=== PATIENT | male | born 1995 | race Caucasian/White ===

== ENCOUNTER → 2019-11-07 16:17 | Outpatient (CLI) | payer BC, SELFPAY ==
[2019-11-07 17:04] LABS: Basophils # 0.1 K/mm3 (0-0.2); Basophils % 1.3 % (0.1-2.0); Eosinophils # 0.3 K/mm3 (0.0-0.4); Eosinophils % 4.4 % (0.1-12.0); Hematocrit 47.3 % (42.0-52.0); Hemoglobin 16.2 g/dL (14.1-18.0); Lymphocytes # 2.1 K/mm3 (0.7-4.5); Lymphocytes % 29.3 % (10-50); Mean Corpuscular HGB Conc 34.3 g/dL (31.8-35.4); Mean Corpuscular Volume 87.6 fl (80-94); Mean Platelet Volume 7.7 fl (7.4-10.4); Monocytes # 0.5 K/mm3 (0.1-1.0); Monocytes % 6.5 % (1.7-9.3); Neutrophils # 4.2 K/mm3 (1.8-7.8); Neutrophils % 58.6 % (37.0-80.0); Platelet Count 236 K/mm3 (142-424); Red Cell Distribution Width 13.2 % (11.5-17.5); White Blood Count 7.1 K/mm3 (4.8-10.8)
[2019-11-07 17:46] LABS: Hemoglobin A1C 5.4 % (4.0-6.0)
[2019-11-07 18:20] LABS: Chloride 101 mmol/L (98-107); Potassium 4.5 mmoL/L (3.5-5.1); Sodium 140 mmol/L (136-145)
[2019-11-07 18:22] LABS: Alanine Aminotransferase 75 U/L (12-78); Anion Gap 12.5 mEq/L (5-15); Aspartate Amino Transferase 38 U/L (17-59); Blood Urea Nitrogen 14 mg/dl (9-20); Carbon Dioxide 31 mmol/L (22.0-30.0); Estimated Glomerular Filt Rate 93 ml/min (>60); GFR (African American) 112 ML/MIN (>60)
[2019-11-07 18:23] LABS: Albumin Level 4.7 g/dl (3.5-5.0); Albumin/Globulin Ratio 1.6 (1.1-1.8); Alkaline Phosphatase 47 U/L (38-126); Bilirubin,Total 0.7 mg/dl (0.2-1.3); Calcium 9.5 mg/dl (8.4-10.2); Cholesterol 216 mg/dl (140-200); Globulin 2.9 g/dL (1.3-3.2); Glucose 80 mg/dl (74-100); HDL Cholesterol 31 mg/dl (40-60); Total Protein,Serum 7.6 g/dl (6.3-8.2); Triglycerides 281 mg/dl (30-150); VLDL Cholesterol 56 mg/dL (0-40)
[2019-11-07 18:34] LABS: Direct LDL Cholesterol 156.55 mg/dL (100-129)
[2019-11-07 18:54] LABS: Thyroid Stimulating Hormone 2.16 uIU/mL (0.465-4.68)
[2019-11-15 03:13] LABS: Testosterone, Total, LC/MS 388.8 ng/dL (264.0-916.0); Testosterone,Free 8.2 pg/mL (9.3-26.5)
== END ==
PROVIDERS: Visit Provider Internal Medicine Adolescent Medicine
DX: N52.9 Male erectile dysfunction, unspecified (principal)
CPT/HCPCS: 36415; 80053; 80061; 83036; 84402; 84403; 84443; 85025

== ENCOUNTER 2020-01-19 22:54 | Emergency (ER) | payer BC, SELFPAY ==
[2020-01-19 23:01] VITALS: BP 164/84; PULSE 89; RESP 18; TEMP 37.1; O2SAT 99; BMI 35.9
[2020-01-19 23:38] LABS: Strep Scrn Group A (Rapid) Negative (Negative)
--- NOTE | 2020-01-20 00:12 | HMH.EDGENADL ---
ED Disposition Clinical Impression: Pharyngitis Qualifiers: Pharyngitis/tonsillitis etiology: unspecified etiology Qualified Code(s): J02.9 - Acute pharyngitis, unspecified Disposition: Home, Self-Care Condition on Discharge: Good Instructions: Sore Throat Additional Instructions: use meds and see pcp for follow up Prescriptions: Minocycline HCl [Minocycline HCl 100mg Tab*] 100 mg PO BID #20 tab Transmission Status: Pending to [id number] Referrals: PCP,No [Primary Care Provider] - - Critical Care Critical Care Time: No Attestation: On 01/19/20, the high probability of a clinically significant, sudden or life threatening deterioration of the following system(s) required my full and direct attention, intervention and personal management. The time I documented below is in addition to time spent performing reported procedures but includes the following listed in this critical care notation. Medical Decision Making - Medical Records Medical records reviewed: Yes: I reviewed the patient's medical records. - Pradip Inquiry Pt receiving controlled substance: No Vital Signs: 01/19/20 23:01 Temperature 98.8 F Temperature Source Oral Pulse Rate [Left] 89 Respiratory Rate 18 Blood Pressure [Right Arm] 164/84 H Blood Pressure Mean [Right Arm] 110 Blood Pressure Source [Right Arm] Automatic Cuff Blood Pressure Position [Right Arm] Sitting 02 Sat by Pulse Oximetry 99 - Lab Data Lab results reviewed: Yes: I reviewed the patient's lab results. Lab Results 01/19/20 23:16: Group A Strep Rapid Negative Orders (Tests/Meds): ORDERS Category Date Time Status Strep Screen Confirmation Stat Micro 01/19/20 23:16 Received General Adult HPI - General Chief complaint: PAIN Stated complaint: throat Time Seen by Provider: 01/19/20 23:50 Mode of Arrival: Ambulatory Source of Information: Patient, Medical Record Limitations: No Limitations Description of Symptoms (Recalled from ER Triage Doc. by RN): pt states he feels like something is stuck in his throat. he woke up feeling this way. states I just hope its not chlamydia. pt had sex for the last night. - History of Present Illness HPI narrative: sore throat today - had oral sex with female last pm no known infection Onset (ago): day(s) Severity: moderate Associated symptoms: denies other symptoms - Related Data Previous Rx's Medication Instructions Recorded Cyclobenzaprine HCl 10 mg PO Q8 #10 tab 04/14/18 [Cyclobenzaprine 10mg Tab] Ibuprofen [Ibuprofen 600mg Tab] 800 mg PO Q8HP PRN #30 tab 04/14/18 Minocycline HCl [Minocycline HCl 100 mg PO BID #20 tab 01/20/20 100mg Tab*] Allergies Allergy/AdvReac Type Severity Reaction Status Date / Time NO KNOWN DRUG ALLERGIES Allergy Unknown Uncoded 04/14/18 21:51 [facility] History - Hepatitis A Screen Drug use history?: No High risk sexual behaviors?: No History of sexually transmitted infection?: No Currently employed?: No Childcare worker?: No Do you have indoor plumbing?: Yes Do you have electricity?: Yes Attestation statement:: This patient has been screened for Hepatitis A risk factors. I have reviewed the patient's past medical history: Yes Medical History: Denies:: Diabetes Mellitus Type 1, Diabetes Mellitus Type 2 Laterality Cases: Bilateral: Other Amputation: No Fractures: No - Social History Smoking Status: Current some day smoker Tobacco Type: smokeless tobacco, cigarettes #Yrs smoked (if former smoker): 1 Alcohol Intake: never Alcohol Intake Frequency:: a few times a month Substance Use Type: denies use Family Hx:: Diabetes, Stroke, Heart Attack ROS Obtained: Yes All systems reviewed & no additional complaints - Constitutional Constitutional: Denies fever(s) - Eyes Eyes: Denies change in vision - ENT Ears, Nose, Mouth, and Throat: Reports as per HPI, Reports sore throat - Cardiovascular Cardiovascular: Denies chest pain - Respirat
[2020-01-20 00:24] VITALS: BP 121/76; PULSE 84; RESP 18; TEMP 36.9
== END 2020-01-20 00:26 | disposition home or self-care (01) ==
PROVIDERS: Emergency Provider Emergency Medicine
DX: J02.9 Acute pharyngitis, unspecified (principal); F17.210 Nicotine dependence, cigarettes, uncomplicated
CPT/HCPCS: 87430; 99282

== ENCOUNTER 2020-09-23 11:27 | Emergency (ER) | payer BC, SELFPAY ==
[2020-09-23 11:33] VITALS: BP 133/73; PULSE 87; RESP 18; TEMP 36.6; O2SAT 98; BMI 35.9
--- NOTE | 2020-09-23 11:44 | HMH.EDUTC ---
[facility] [place] Disposition Clinical Impression: Strep throat Disposition: Home, Self-Care Condition on Discharge: Good Instructions: Strep Throat, DI for Strep Throat, Amoxicillin, Fluticasone Nasal [place] Additional Instructions: *Monitor Temp, Over the counter Motrin or Tylenol as directed/as needed Tylenol every 4 hours and Motrin every 6 hours (as long as your family doctor has told you that you can take it) for fever or pain. and straight to ER if unable to lower temp less than 101.0 after medication given *Warm salt water gargles may help to soothe the throat *Throat Lozenges *Warm fluids like tea with honey may help to soothe the throat *Sleep elevated *Humidifier/Vaporizer *Flonase 2 sprays in each nostril daily but be aware that it may take 2-3 days before you notice improvement *If you did not take Penicillin shot or was unable to, start taking antibiotic immediately and make sure that you take it for the FULL length of time although you should start to feel better in 24-48 hours *change toothbrush and toothpaste 24-48 hours after starting to take antibiotics so you do not reinfect yourself Monitor Temp. Tylenol and/or Ibuprofen as needed. ER if fever is no less than 101 despite alternating Tylenol and Ibuprofen * Encourage fluids, water, Gatorade, powerade, pedialyte if /toddler/or child *Cold fluids, popsicles and ice cream may feel good on his throat Follow up IMMEDIATELY for new or worsening symptoms or no Noticeable improvement over the next 48-72 hours. 911 for difficulty breathing or swallowing Prescriptions: Amoxicillin [Amoxicillin 500mg Cap] 500 mg PO BID 10 Days #20 cap Transmission Status: Received by [id number] Fluticasone Propionate [Flonase 50mcg nasal spray 16gm] 1 spr NS DAILY #1 bottle Transmission Status: Received by [id number] Referrals: Star Ernandez MD [Primary Care Provider] - As needed Forms: Work/School Release Time of Disposition: 12:01 Medical Decision Making - Pradip Inquiry Pt receiving controlled substance: No Pradip was queried for this patient: No Vital Signs: 09/23/20 11:33 09/23/20 12:05 Temperature 97.8 F 97.8 F Temperature Source Tympanic Tympanic Pulse Rate 87 Pulse Rate [Right Brachial] 87 Respiratory Rate 18 18 Blood Pressure 133/73 Blood Pressure [Right Arm] 133/73 Blood Pressure Mean [Right Arm] 93 Blood Pressure Source Automatic Cuff Blood Pressure Source [Right Arm] Automatic Cuff Blood Pressure Position Sitting Blood Pressure Position [Right Arm] Sitting 02 Sat by Pulse Oximetry 98 Oxygen Delivery Method Room Air Room Air - Lab Data Lab results reviewed: Yes: I reviewed the patient's lab results. Lab Results 09/23/20 11:42: Strep Scn Rapid Clinic Positive A [facility] [place] HPI - General Stated complaint: covid test Time Seen by Provider: 09/23/20 11:44 Mode of Arrival: Ambulatory Source of Information: Patient Limitations: No Limitations Description of Symptoms (Recalled from Triage Doc. by RN): Pt wants covid test. Pt reports cough, congestion, & nausea/vomiting. HEENT Symptoms (Recalled from RN notes): Yes Resp Symptoms (Recalled from RN notes): Yes Skin Symptoms (Recalled from RN notes): No MS Symptoms (Recalled from RN notes): No Functional Status (Recalled from RN notes): wnl - History of Present Illness Provider Complaint: Patient states that he has been having sore throat, sinus congestion, cough for several days States that he had some nausea and vomiting last night and today was still not feeling well so he came in to get tested - Related Data Previous Rx's Medication Instructions Recorded Amoxicillin [Amoxicillin 500mg 500 mg PO BID 10 Days #20 cap 09/23/20 Cap] Fluticasone Propionate [Flonase 1 spr NS DAILY #1 bottle 09/23/20 50mcg nasal spray 16gm] Allergies Allergy/AdvReac Type Severity Reaction Status Date / Time NO KNOWN DRUG ALLERGIES Allergy Unknown Uncoded 04/14/18 21:51
[2020-09-23 11:58] LABS: UTC Strep Screen (Rapid) Positive (Negative)
[2020-09-23 12:05] VITALS: BP 133/73; PULSE 87; RESP 18; TEMP 36.6; O2SAT 98
== END 2020-09-23 12:06 | disposition home or self-care (01) ==
PROVIDERS: Emergency Provider Nurse Practitioner; PCP Internal Medicine Adolescent Medicine
DX: Z20.822 Contact with and (suspected) exposure to COVID-19 (principal); J02.0 Streptococcal pharyngitis; F17.210 Nicotine dependence, cigarettes, uncomplicated
CPT/HCPCS: 87880; 99202; G0463; U0003

== ENCOUNTER 2021-01-11 20:42 | Emergency (ER) | payer BC, SELFPAY ==
[2021-01-11 22:00] VITALS: BP 126/69; PULSE 62; RESP 22; TEMP 37.1; O2SAT 99; BMI 33.9
--- NOTE | 2021-01-11 22:06 | HMH.EDUTC ---
[facility] [place] Clinical Impression: Exposure to COVID-19 virus Disposition: Home, Self-Care Condition on Discharge: Good Instructions: Preventing the Spread of Coronavirus Discharge Instructions Additional Instructions: Drink plenty of fluids. Take tylenol for pain or fever. Return if you begin to have difficulty breathing. Follow up with your regular doctor. GO TO THE ER FOR ANY WORSENING SYMPTOMS Referrals: Star Ernandez MD [Primary Care Provider] - Forms: Work/School Release Time of Disposition: 22:07 Medical Decision Making - Medical Records Medical records reviewed: No: I reviewed the patient's medical records. - Pradip Inquiry Pt receiving controlled substance: No Vital Signs: 01/11/21 22:00 01/11/21 22:11 Temperature 98.7 F 98 F Temperature Source Oral Pulse Rate 65 Pulse Rate [Left] 62 Respiratory Rate 22 16 Blood Pressure 000/00 L Blood Pressure [Right Arm] 126/69 Blood Pressure Mean [Right Arm] 88 02 Sat by Pulse Oximetry 99 [facility] [place] HPI - General Stated complaint: covid test Time Seen by Provider: 01/11/21 22:06 Mode of Arrival: Ambulatory Source of Information: Patient Limitations: No Limitations Description of Symptoms (Recalled from Triage Doc. by RN): pt called into work for covid symptoms and needs a release to return. pt states in truth he did not have any symptoms. HEENT Symptoms (Recalled from RN notes): No Resp Symptoms (Recalled from RN notes): No Skin Symptoms (Recalled from RN notes): No MS Symptoms (Recalled from RN notes): No Functional Status (Recalled from RN notes): na - History of Present Illness Provider Complaint: he states that he missed work and now he needs a negative covid test to be allowed to return. He denies any symptoms so far. But he has definitely been exposed multiple times over the past week. He has not been vaccinated. - Related Data Previous Rx's Medication Instructions Recorded Amoxicillin [Amoxicillin 500mg 500 mg PO BID 10 Days #20 cap 09/23/20 Cap] Fluticasone Propionate [Flonase 1 spr NS DAILY #1 bottle 09/23/20 50mcg nasal spray 16gm] Allergies Allergy/AdvReac Type Severity Reaction Status Date / Time NO KNOWN DRUG ALLERGIES Allergy Unknown Uncoded 04/14/18 21:51 - Worker's Comp Is this a Worker's Comp case?: No [facility] History - Hepatitis A Screen Drug use history?: No High risk sexual behaviors?: No History of sexually transmitted infection?: No Currently employed?: No Childcare worker?: No Do you have indoor plumbing?: Yes Do you have electricity?: Yes Attestation statement:: This patient has been screened for Hepatitis A risk factors. I have reviewed the patient's past medical history: Yes Medical History: Denies:: Diabetes Mellitus Type 1, Diabetes Mellitus Type 2 Laterality Cases: Bilateral: Other Amputation: No Fractures: No - Social History Smoking Status: Current some day smoker Tobacco Type: smokeless tobacco, cigarettes #Yrs smoked (if former smoker): 1 Alcohol Intake: never Alcohol Intake Frequency:: a few times a month Substance Use Type: denies use Family Hx:: Diabetes, Stroke, Heart Attack ROS Obtained: Yes All systems reviewed & no additional complaints - Constitutional Constitutional: Reports system reviewed and no additional complaints, except as docu - Eyes Eyes: Reports system reviewed and no additional complaints, except as docu - ENT Ears, Nose, Mouth, and Throat: Reports system reviewed and no additional complaints, except as docu - Cardiovascular Cardiovascular: Reports system reviewed and no additional complaints, except as docu - Respiratory Respiratory: Reports system reviewed and no additional complaints, except as docu - Gastrointestinal Gastrointestingal: Reports: system reviewed and no additional complaints, except as docu Physical Exam - General General appearance: alert, in no apparent distress - Head Head exam: atraumatic,
[2021-01-11 22:11] VITALS: BP 000/00; PULSE 65; RESP 16; TEMP 36.6
== END 2021-01-11 22:11 | disposition home or self-care (01) ==
PROVIDERS: Emergency Provider Nurse Practitioner Family; PCP Internal Medicine Adolescent Medicine
DX: Z20.822 Contact with and (suspected) exposure to COVID-19 (principal); F17.210 Nicotine dependence, cigarettes, uncomplicated
CPT/HCPCS: 99202; G0463; U0003

== ENCOUNTER 2021-04-27 08:08 | Emergency (ER) | payer BC, SELFPAY ==
[2021-04-27 08:09] VITALS: BP 118/73; PULSE 83; RESP 16; TEMP 36.4; O2SAT 98; BMI 30.1
--- NOTE | 2021-04-27 08:14 | XR_ITS ---
PROCEDURE: XR HAND LT MIN 3V CLINICAL INDICATION: injury left hand COMPARISON: CR HANDR3 HAND-RT 3 VIEWS from 02/01/2015 FINDINGS: No fracture or dislocation. No lytic or blastic change. There is normal mineralization. The joint spaces are well-preserved. No significant degenerative/arthritic changes. No erosive changes evident. Other findings:None. IMPRESSION: No acute findings. Dictated by: Patrick Wilkinson MD 04/27/2021 09:57 Patrick Wilkinson MD in [place] 04/27/2021 09:57
--- NOTE | 2021-04-27 08:35 | HMH.EDGENADL ---
ED Disposition Clinical Impression: Cellulitis Disposition: Home, Self-Care Condition on Discharge: Good Instructions: Cellulitis Additional Instructions: Please follow up with your primary care physician in 2-3 days for further management. Please use tylenol and ibuprofen for pain control and swelling. May also use ice to help with swelling. You have also been prescribed bactrim, please take as prescribed for prophylaxis. Please return for any concerning symptoms such as worsening pain, swelling, purulent drainage, extending into palm or any other concerning symptoms. Prescriptions: Sulfamethoxazole/Trimethoprim [Bactrim DS tablet] 1 each PO BID 7 Days #14 tab Transmission Status: Received by [id number] Referrals: Star Ernandez MD [Primary Care Provider] - Emil Monroy MD [Staff Physician] - Time of Disposition: 10:30 - Critical Care Critical Care Time: No Attestation: On 04/27/21, the high probability of a clinically significant, sudden or life threatening deterioration of the following system(s) required my full and direct attention, intervention and personal management. The time I documented below is in addition to time spent performing reported procedures but includes the following listed in this critical care notation. Medical Decision Making - Medical Records Medical records reviewed: Yes: I reviewed the patient's medical records. - Pradip Inquiry Pt receiving controlled substance: No Vital Signs: 04/27/21 08:09 04/27/21 11:13 Temperature 97.5 F L 98 F Temperature Source Oral Oral Pulse Rate 78 Pulse Rate [Radial] 83 Respiratory Rate 16 16 Blood Pressure 125/68 Blood Pressure [Right Arm] 118/73 Blood Pressure Mean [Right Arm] 88 Blood Pressure Position Sitting Blood Pressure Position [Right Arm] Sitting 02 Sat by Pulse Oximetry 98 Oxygen Delivery Method Room Air Room Air - Lab Data Lab Results 04/27/21 08:25: WBC 9.8, RBC 5.16, Hgb 15.4, Hct 44.7, MCV 86.6, MCH 29.9, MCHC 34.5, RDW 13.3, Plt Count 265, MPV 8.3, Neut % (Auto) 69.7, Lymph % (Auto) 23.6, Warrick % (Auto) 4.2, Eos % (Auto) 2.1, Baso % (Auto) 0.4, Neut # (Auto) 6.8, Lymph # (Auto) 2.3, Warrick # (Auto) 0.4, Eos # (Auto) 0.2, Baso # (Auto) 0.0, ESR 11 04/27/21 08:25: C-Reactive Protein 2.0 Result diagrams: 04/27/21 08:25 Orders (Tests/Meds): ED MEDICATIONS Discontinued Medications Generic Name Dose Route Start Last Admin Trade Name Jovanni PRN Reason Stop Dose Admin Tetanus/Reduced Diphtheria/Acell Pertussis 0.5 ml 04/27/21 08:25 04/27/21 08:34 Tet/Diphth/Pert-Adult 0.5ml Syringe IM 04/27/21 08:26 0.5 ml .ONCE ONE Administration Medical Decision Narrative: Mr. Acuña is a 25yo male w/ no significant PMH who presents to the ED w/ injury to the (L) 5th digit following a penetrating injury. Patient is afebrile and hemodynamically stable on arrival. Physical exam remarkable for: well appearing male, non toxic. Patient has significant swelling to the middle phalanx and proximal phalanx w/ swelling noted. No pain w/ passive motion. Full flexion and extension. No open lesions noted. Patient is given tylenol and ibuprofen PO for pain control. Differentials to consider include: low suspicion for flexor tensonyvitis given current exam, cellulitis, septic joint low suspicion given labs and current clinical picture and fractures/foreign body. Basic labs, CRP and ESR are obtained results are non actionable. XR of the hand shows no fracture, dislocations or foreign body noted. Patient is discharged w/ bactrim and keflex and informed to fu w/ hand clinic/Orthopaedics in 1 week for evaluation. Patient informed the importance of keeping his anointment and is discharged in stable condition. General Adult HPI - General Chief complaint: PAIN Stated complaint: swollen/sore left pinky finger Time Seen by Provider: 04/27/21 08:20 Mode of Arrival: Ambulatory Source of Information: Patient Limitations: No L
[2021-04-27 08:45] LABS: Basophils % 0.4 % (0.1-2.0); Eosinophils # 0.2 K/mm3 (0.0-0.4); Eosinophils % 2.1 % (0.1-12.0); Hematocrit 44.7 % (42.0-52.0); Hemoglobin 15.4 g/dL (14.1-18.0); Lymphocytes # 2.3 K/mm3 (0.7-4.5); Lymphocytes % 23.6 % (10-50); Mean Corpuscular HGB Conc 34.5 g/dL (31.8-35.4); Mean Corpuscular Hemoglobin 29.9 pg (27.0-31.2); Mean Corpuscular Volume 86.6 fl (80-94); Mean Platelet Volume 8.3 fl (7.4-10.4); Monocytes # 0.4 K/mm3 (0.1-1.0); Monocytes % 4.2 % (1.7-9.3); Neutrophils # 6.8 K/mm3 (1.8-7.8); Neutrophils % 69.7 % (37.0-80.0); Platelet Count 265 K/mm3 (142-424); Red Blood Count 5.16 M/mm3 (4.60-6.20); Red Cell Distribution Width 13.3 % (11.5-17.5); White Blood Count 9.8 K/mm3 (4.8-10.8)
[2021-04-27 09:32] LABS: Erythrocyte Sedimentation Rate 11 mm/hr (0-15)
--- NOTE | 2021-04-27 09:43 | PC.NURSE ---
contacted rad to request radiologist to read their films
[2021-04-27 11:13] VITALS: BP 125/68; PULSE 78; RESP 16; TEMP 36.6; O2SAT 98
== END 2021-04-27 11:15 | disposition home or self-care (01) ==
PROVIDERS: Emergency Provider Student in an Organized Health Care Education/Training Program; PCP Internal Medicine Adolescent Medicine
DX: L03.012 Cellulitis of left finger (principal); F17.210 Nicotine dependence, cigarettes, uncomplicated; Z23 Encounter for immunization
CPT/HCPCS: 73130; 85025; 85651; 86140; 90471; 90715; 99282

== ENCOUNTER 2022-09-09 16:04 | Emergency (ER) | payer BC, SELFPAY ==
[2022-09-09 16:35] VITALS: BP 145/81; PULSE 66; RESP 21; TEMP 36.7; O2SAT 98; BMI 38.8
--- NOTE | 2022-09-09 17:23 | EXP.UTC ---
Discharge Plan Disposition Patient Disposition: Home, Self-Care Condition: Good Prescriptions Prescriptions: New triamcinolone acetonide 0.1 % cream 1 applic topical TID Qty: 30 0RF Referrals Follow up/Referrals: Provider,Referral, MD [Primary Care Provider] - See instructions Clinical Impressions Clinical Impression: Contact dermatitis Instructions Patient Instructions: DI for Contact Dermatitis Discharge ED Provider: Janet Wilkins [facility] [place] H[place] General Stated complaint: face swollen Mode of Arrival: Ambulatory Source of Information: Patient Limitations: No Limitations Time Seen by Provider: 09/09/22 17:23 Description of Symptoms (Recalled from Triage Doc. by RN): PATIENT C/O SWELLING, REDNESS, AND ITCHING TO LEFT SIDE OF FACE AROUND EYE, NOSE AND FOREHEAD SINCE THIS MORNING HEENT Symptoms (Recalled from RN notes): Yes Resp Symptoms (Recalled from RN notes): No Skin Symptoms (Recalled from RN notes): Yes MS Symptoms (Recalled from RN notes): No Functional Status (Recalled from RN notes): WNL History of Present Illness Provider Complaint: Pt states that he had a spot under his left eye prior to going to sleep this morning. He reports that when he woke up the left side of his face under his eye and around his eye, his nose, and forehead were red and swollen. He states that the site itches. Related Data Previous Rx's Medication Instructions Recorded triamcinolone acetonide 0.1 % 1 applic topical TID #30 grams 09/09/22 topical cream Allergies Allergy/AdvReac Type Severity Reaction Status Date / Time No Known Allergies Allergy Verified 09/09/22 17:31 Worker's Comp Is this a Worker's Comp case?: No [facility] Disclaimer: The information contained in this section may have been updated after the patient was seen, as this information can be updated by other users. Social History Smoking Status: Current some day smoker tobacco type: cigarettes and smokeless tobacco second hand exposure: No alcohol intake: never substance use type: denies use current occupational status: employed Travel in the last 8 weeks: None ROS Obtained: Yes All systems reviewed & no additional complaints except as documented Constitutional Constitutional: Reports system reviewed and no additional complaints, except as documented Eyes Eyes: Reports as per HPI and Reports itchy eyes ENT Ears, Nose, Mouth, and Throat: Reports system reviewed and no additional complaints, except as documented Cardiovascular Cardiovascular: Reports system reviewed and no additional complaints, except as documented Respiratory Respiratory: Reports system reviewed and no additional complaints, except as documented Gastrointestinal Gastrointestingal: Reports system reviewed and no additional complaints, except as documented Genitourinary Male Genitourinary: Reports system reviewed and no additional complaints, except as documented Musculoskeletal Musculoskeletal: Reports system reviewed and no additional complaints, except as documented Integumentary/Breasts Skin/Breast: Reports as per HPI, Reports redness, Reports pruritus and Reports skin swelling Neurologic Neurologic: Reports system reviewed and no additional complaints, except as documented Endocrine Endocrine: Reports system reviewed and no additional complaints, except as documented Hematologic/Lymphatic Henatologic/Lymphatic: Reports system reviewed and no additional complaints, except as documented Allergic/Immunologic Allergic/Immunologic: Reports system reviewed and no additional complaints, except as documented and Reports itchy eyes Physical Exam General General appearance: alert and in no apparent distress Head Head exam: atraumatic and normocephalic Eye Eye exam: Present periorbital swelling (left eye) and periorbital tenderness (left eye) Neck Neck exam: Present normal inspection Chest Chest inspection: Present normal inspection and symmetric chest wall ris
[2022-09-09 17:36] VITALS: BP 145/81; PULSE 66; RESP 21; TEMP 36.7; O2SAT 98
== END 2022-09-09 17:39 | disposition home or self-care (01) ==
PROVIDERS: Emergency Provider Nurse Practitioner Family
DX: L25.9 Unspecified contact dermatitis, unspecified cause (principal); F17.210 Nicotine dependence, cigarettes, uncomplicated
CPT/HCPCS: 96372; 99212; 99214; G0463

== ENCOUNTER 2023-11-27 07:45 | Emergency (ER) | payer BC, SELFPAY ==
[2023-11-27 07:46] VITALS: BP 150/98; PULSE 84; RESP 16; TEMP 37.3; O2SAT 98; BMI 39.9
--- NOTE | 2023-11-27 08:01 | HMH.EDGENADL ---
Discharge Plan Disposition Patient Disposition: Home, Self-Care Prescriptions Prescriptions: New valacyclovir 1 gram tablet 1,000 mg PO Q8H 10 Days Qty: 30 1RF No Action triamcinolone acetonide 0.1 % cream 1 applic topical TID Qty: 30 0RF Referrals Follow up/Referrals: Star Ernandez MD [Primary Care Provider] - See instructions Activity Restrictions/Add. Instructions Additional Instructions/Restrictions: Valacyclovir 3 times daily for 10 days. A refill has been sent to the pharmacy as well. Talk to family doctor about having standing prescription for cold sores sent to the pharmacy so you are able to call them in whenever you start having symptoms. Medicine is most effective if taken within 72 hours of symptoms starting, but maximally effective closer to the onset of symptoms. Call your family doctor to establish care for this visit to the emergency department and schedule follow-up within 48 hours to ensure improvement. If you have any worsening of your condition or any other concerning signs or symptoms, return to the emergency department or your primary care doctor for further evaluation. Clinical Impressions Clinical Impression: Cold sore Instructions Patient Instructions: DI for Cold Sores Discharge ED Provider: Som Zavala General Adult HPI General Chief complaint: Skin/Abscess/Foreign Body Stated complaint: cold sore in nose area red painful Time Seen by Provider: 11/27/23 07:52 History of Present Illness HPI narrative: Please note that above description of symptoms, in this electronic medical record under categorization of recalled from ER triage doctor by RN are reflective of an initial nursing assessment, however, is not reflective of my full history and physical exam that was personally taken and clarified. Consequentially, this preceding description of symptoms, which may include the patient's categorized chief complaint in the EMR, do not reflect my personal clinical impression, and the ultimate description of history of present illness and patient stated complaints should be deferred to this section of the note. Unless stated otherwise or congruent with this section of the note, additional signs, symptoms, or incongruence should be interpreted as inaccurate with my clinical impression. Related Data Previous Rx's Medication Instructions Recorded triamcinolone acetonide 0.1 % 1 applic topical TID #30 grams 09/09/22 topical cream valacyclovir 1 gram tablet 1,000 mg PO Q8H 10 days #30 tabs 11/27/23 Allergies Allergy/AdvReac Type Severity Reaction Status Date / Time No Known Allergies Allergy Verified 09/09/22 17:31 [facility] Disclaimer: The information contained in this section may have been updated after the patient was seen, as this information can be updated by other users. Social History (Updated 09/09/22 @ 17:40 by Janet Wilkins APRN) Smoking Status: Never smoker second hand exposure: No alcohol intake: never substance use type: denies use current occupational status: employed Travel in the last 8 weeks: None ROS Obtained: Yes All systems reviewed & no additional complaints except as documented Physical Exam General General appearance: alert and in no apparent distress Head Head exam: atraumatic and normocephalic Eye Eye exam: Present normal appearance, PERRL and EOMI ENT ENT exam: Present mucous membranes moist Neck Neck exam: Present normal inspection, full ROM and trachea midline Respiratory Respiratory exam: Absent respiratory distress, wheezes, stridor, accessory muscle use or prolonged expiratory phase Cardiovascular Cardiovascular exam: Present normal rhythm Abdominal Exam Abdominal exam: Present soft; Absent distention, tenderness, guarding, rebound or rigidity Extremities Exam Extremities exam: Absent edema Neurological Exam Neurological exam: Present alert, oriented X3, CN II-XII intact and normal gait; Absent motor sensory deficit Skin Skin exam: Present warm and dry; Absent diaphoresis or erythema Medical Decision Making Medical Records Medical records reviewed: Yes I reviewed the patient's medical records. Pradip Inquiry Pt receiving controlled substance: No Pradip was queried for this patient: No Vital Signs: 11/27/23 07:46 11/27/23 08:10 Temperature 99.1 F 99.1 F Temperature Source Oral Oral Pulse Rate 70 Pulse Rate [Right] 84 Respiratory Rate 16 17 Blood Pressure 141/94 H Blood Pressure [Right Arm] 150/98 H Blood Pressure Mean [Right Arm] 115 Blood Pressure Source [Right Arm] Automatic Cuff 02 Sat by Pulse Oximetry 98 Oxygen Delivery Method Room Air Room Air Medical Decision Narrative: 28-year-old male history of labial herpes virus presenting with labial herpes flares. Patient states that this started 2 days ago. Started on his vermilion border on the left side, climbing up to his nose. He states this is what happens every time he gets a outbreak. Does not have any antivirals at the pharmacy. Pain is moderate in intensity, burning, does not radiate. No other associated symptoms. On arrival, patient hemodynamically stable. Appears very well. He does have vesicular lesions on erythematous bed extending from vermilion border up to left nostril. I feel this is consistent with orolabial herpes. Differential also includes developing abscess, cellulitis, among others. No fluctuance. Clinically HSV, so deemed appropriate for outpatient management. Valacyclovir 1000 mg 3 times daily was sent to his pharmacy of choice. It was recommended that he follow-up with his family doctor for standing prescription, but 1 refill was also sent here from the emergency department to prevent patient from needing to come to the emergency department, urgent care, or schedule urgent follow-up with his family doctor in the event of another outbreak. He voices understanding. Because patient at baseline without signs or symptoms of clinical decompensation, deemed appropriate for discharge. Results were relayed to patient who voiced understanding and were agreeable to outpatient management and follow up. I discussed my clinical impression with patient and answered all questions. At this time, the evidence for any other entities in the differential is insufficient to warrant any further testing or ED observation. This was explained as well. Advisory was given that persistent or worsening symptoms require further evaluation. I confirmed the understanding of this discussion. Fund Accountant disclaimer Much of this encounter note is an electronic director of education spoken language to printed text. Electronic director of education of the spoken language may permit errors. Although I have reviewed the note, some errors may still exist. Critical Care Critical Care Time Critical Care Time: No
[2023-11-27 08:10] VITALS: BP 141/94; PULSE 70; RESP 17; TEMP 37.3; O2SAT 97
== END 2023-11-27 08:12 | disposition home or self-care (01) ==
PROVIDERS: Emergency Provider Emergency Medicine; PCP Internal Medicine Adolescent Medicine
DX: B00.1 Herpesviral vesicular dermatitis (principal)
CPT/HCPCS: 99283

== ENCOUNTER 2024-01-15 16:41 | Emergency (ER) | payer BC, SELFPAY ==
[2024-01-15 16:55] VITALS: BP 137/95; PULSE 76; RESP 18; TEMP 36.7; O2SAT 95; BMI 41.2
--- NOTE | 2024-01-15 17:08 | XR_ITS ---
PROCEDURE INFORMATION: Exam: XR Lumbosacral Spine Exam date and time: 01/15/2024 5:08 PM Age: 28 years old Clinical indication: Low back pain; Additional info: Pain with movement TECHNIQUE: Imaging protocol: Radiologic exam of the lumbosacral spine. Views: 2 or 3 views. COMPARISON: CR [id number] XR lumbar spine min 4V 04/14/2018 10:29 PM FINDINGS: Bones/joints: Lumbar vertebrae normal in height. No acute fracture. Normal alignment. Mild L5-S1 intervertebral disc space narrowing. Soft tissues: Unremarkable. IMPRESSION: No acute osseous findings.
[2024-01-15 17:10] LABS: Apearance,Urine Clear (Clear); Bilirubin,Urine Negative (Negative); Blood, Urine Trace (Negative); Color,Urine Dark Yellow (Yellow); Glucose,Urine (UA) Negative (Negative); Ketones,Urine Negative (Negative); PH,Urine 5.5 (5.0-8.5); Protein,Urine Negative (Negative); Specific Gravity, Urine >= 1.030 (1.005-1.030); UTC Leukocyte Esterase,Urine Negative (Negative); UTC Nitrate,Urine Negative (Negative); Urobilinogen,Urine 0.2 EU/dl (0.2)
--- NOTE | 2024-01-15 17:11 | EXP.UTC ---
Discharge Plan Disposition Patient Disposition: Home, Self-Care Condition: Good Prescriptions Prescriptions: New etodolac 200 mg capsule 200 mg PO Q8H PRN (Reason: pain) Qty: 20 0RF methocarbamol 500 mg tablet 500 mg PO TID PRN (Reason: muscle spasm) Qty: 12 0RF methylprednisolone [Medrol (Julio Cesar)] 4 mg tablets,dose pack See Rx Instructions .Route .COMPLEX 6 Days Qty: 21 0RF Rx Instructions: taper pack; Referrals Follow up/Referrals: Star Ernandez MD [Primary Care Provider] - See instructions Activity Restrictions/Add. Instructions Additional Instructions/Restrictions: *Etodolac lashae 8 hours with meal as needed for pain/inflammation *Remember you had a Toradol shot in the clinic today, which is similar to Etodolac so if you need something else for pain tonight Tylenol *Not additional anti-inflammatory like Ibuprofen, motrin, aleve, advil with the above amount of Etodolac. You can still take Tylenol every 4 hours as needed if you need something else for pain *Ice 20 minutes every 2 hours for the first 48 hours after the initial injury followed by moist heat every 20 minutes 3-4 times a day to affected area *Muscle relaxer every 8 hours as needed for muscle spasms but remember, it WILL cause drowsiness You cannot take it and Work, drive, operate machinery or care for small children. *Keep this area active, no movement leads to more stiffness, However take it easy and avoid heavy lifting pushing or pulling *Follow up with you family doctor if no improvement for further treatment Clinical Impressions Clinical Impression: Low back pain Qualifiers: Chronicity: unspecified Back pain laterality: right Sciatica presence: unspecified whether sciatica present Qualified Code(s): M54.50 - Low back pain, unspecified Instructions Patient Instructions: Low Back Pain, DI for Low Back Pain Print Language Print Language: Norwegian Discharge ED Provider: Linh Fisher [facility] General Stated complaint: back pain Mode of Arrival: Ambulatory Source of Information: Patient Limitations: No Limitations Time Seen by Provider: 01/15/24 17:11 Description of Symptoms (Recalled from Triage Doc. by RN): PATIENT C/O SHARP PAIN TO LOWER BACK THAT OCCASIONALLY RADIATES INTO BUTTOCKS X 5 DAYS, NO KNOWN INJURY HEENT Symptoms (Recalled from RN notes): No Resp Symptoms (Recalled from RN notes): No Skin Symptoms (Recalled from RN notes): No MS Symptoms (Recalled from RN notes): Yes Functional Status (Recalled from RN notes): WNL History of Present Illness Provider Complaint: Patient states that he woke up on Mon with pain in the right side of his lower back Denies known injury States that at times when he bends or moves certain ways it shoots a sharp pain in his right lower back and into his buttock area States doesnt recall hurting it but 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 States he has taken Naproxen and some left over muscle relaxers but it hasnt helped much so today he came in to get checked when it was still bothering him Related Data Previous Rx's ?Medication ?Instructions ?Recorded etodolac 200 mg capsule 200 mg PO Q8H PRN pain #20 caps 01/15/24 methocarbamol 500 mg tablet 500 mg PO TID PRN muscle spasm #12 01/15/24 tabs methylprednisolone 4 mg tablets in See Rx Instructions .Route 01/15/24 a dose pack (Medrol (Julio Cesar)) .COMPLEX 6 days #21 tabs Allergies Allergy/AdvReac Type Severity Reaction Status Date / Time No Known Allergies Allergy Verified 09/09/22 17:31 Worker's Comp Is this a Worker's Comp case?: No [facility] Disclaimer: The information contained in this section may have been updated after the patient was seen, as this information can be updated by other users. Social History (Updated 09/09/22 @ 17:40 by Janet Wilkins APRN) Smoking Status: Never smoker second hand exposure: No alcohol intake: never substance use type: denies use current occupational status: employed Travel in the last 8 weeks: None ROS Obtained: Yes All systems reviewed & no additional complaints except as documented and Yes Systems reviewed as appropriate & no additional complaints except as documented Constitutional Constitutional: Reports system reviewed and no additional complaints, except as documented and Reports as per HPI ENT Ears, Nose, Mouth, and Throat: Reports system reviewed and no additional complaints, except as documented Cardiovascular Cardiovascular: Reports system reviewed and no additional complaints, except as documented and Reports as per HPI Respiratory Respiratory: Reports system reviewed and no additional complaints, except as documented and Reports as per HPI Gastrointestinal Gastrointestingal: Reports system reviewed and no additional complaints, except as documented and as per HPI Musculoskeletal Musculoskeletal: Reports system reviewed and no additional complaints, except as documented, Reports as per HPI and Reports back pain Physical Exam General General appearance: alert and in no apparent distress ENT ENT exam: Present mucous membranes moist Respiratory Respiratory exam: Present normal lung sounds bilaterally; Absent respiratory distress or wheezes Cardiovascular Cardiovascular exam: Present regular rate, normal rhythm and normal heart sounds Abdominal Exam Abdominal exam: Present soft and normal bowel sounds; Absent distention or tenderness Back Exam Back exam: Present tenderness Back 1 view image: 1. reports achy like pain that is sharp at times with certain movements and at times will radiate into buttock area worse with movement Neurological Exam Neurological exam: Present alert, oriented X3 and normal gait Medical Decision Making Pradip Inquiry Pt receiving controlled substance: No Pradip was queried for this patient: No Vital Signs: 01/15/24 16:55 Pulse Rate [Left Brachial] 76 Respiratory Rate 18 Blood Pressure [Left Arm] 137/95 H Blood Pressure Mean [Left Arm] 109 Blood Pressure Source [Left Arm] Automatic Cuff Blood Pressure Position [Left Arm] Sitting 02 Sat by Pulse Oximetry 95 Oxygen Delivery Method Room Air Lab Data Lab results reviewed: Yes I reviewed the patient's lab results. Lab Results 01/15/24 17:06: Urine Color Dark yellow, Urine Appearance Clear, Urine pH 5.5, Ur Specific [place] >= 1.030, Urine Protein Negative, Urine Glucose (UA) Negative, Urine Ketones Negative, Urine Blood Trace, Urine Nitrate Negative, Urine Bilirubin Negative, Urine Urobilinogen 0.2, Ur Leukocyte Esterase Negative Orders (Tests/Meds): ORDERS Category Date Time Status Lumbar spine XR 2-3 views [XR lumbar spine 2-3V] Stat Exams 01/15/24 17:08 Ordered Radiology Data #1: Image(s): L-Spine Image Reviewed: Yes I have reviewed radiologist's interpretation FINDINGS: Bones/joints: Lumbar vertebrae normal in height. No acute fracture. Normal alignment. Mild L5-S1 intervertebral disc space narrowing. Soft tissues: Unremarkable. IMPRESSION: No acute osseous findings.
[2024-01-15] MEDS: METHYLPREDNISOLONE SOD SUCC 125MG VIAL 125 MG IM (18:30)
[2024-01-15] MEDS: KETOROLAC 60MG/2ML VIAL 60 MG IM (18:30)
[2024-01-15 18:37] VITALS: BP 137/95; PULSE 76; RESP 18; TEMP 36.7; O2SAT 95
== END 2024-01-15 18:40 | disposition home or self-care (01) ==
PROVIDERS: Emergency Provider Nurse Practitioner; PCP Internal Medicine Adolescent Medicine
DX: M54.50 Low back pain, unspecified (principal); X50.0XXA Overexertion from strenuous movement or load, initial encounter
CPT/HCPCS: 72100; 81003; 96372; 99212; 99214; G0463; J1885; J2919

== ENCOUNTER 2024-06-10 19:52 | Emergency (ER) | payer BC, SELFPAY ==
--- NOTE | 2024-06-10 20:04 | ECG_ITS ---
APPROVED REPORT Exam: Resting ECG HR:102 bpm ECG Measurements Heart Rate 102 AXES MN 155 P 48 QRSd 94 QRS -5 QT 337 T 42 QTc 396 Conclusion Sinus tachycardia T wave inversions V2 and V3 with no reciprocal change Electronically signed by : CHAR FREGOSO, 06/10/2024 20:47:21
[2024-06-10 20:11] VITALS: BP 165/110; PULSE 104; RESP 21; TEMP 36.5; O2SAT 100; BMI 41.3
[2024-06-10 20:15] VITALS: BP 151/100; PULSE 93; RESP 23; O2SAT 95
--- NOTE | 2024-06-10 20:22 | XR_ITS ---
PROCEDURE INFORMATION: Exam: XR Chest Exam date and time: 06/10/2024 8:25 PM Age: 28 years old Clinical indication: Dyspnea; Additional info: SOA HTN TECHNIQUE: Imaging protocol: Radiologic exam of the chest. Views: 1 view. COMPARISON: No relevant prior studies available. FINDINGS: Lungs: Unremarkable. No consolidation. Pleural spaces: Unremarkable. No pleural effusion. No pneumothorax. Heart/Mediastinum: Unremarkable. No cardiomegaly. Bones/joints: Unremarkable. IMPRESSION: No acute findings.
--- NOTE | 2024-06-10 20:23 | HMH.EDGENADL ---
Discharge Plan Disposition Patient Disposition: Home, Self-Care Prescriptions Prescriptions: New irbesartan 150 mg tablet 150 mg PO DAILY Qty: 30 2RF No Action etodolac 200 mg capsule 200 mg PO Q8H PRN (Reason: pain) Qty: 20 0RF methocarbamol 500 mg tablet 500 mg PO TID PRN (Reason: muscle spasm) Qty: 12 0RF methylprednisolone [Medrol (Julio Cesar)] 4 mg tablets,dose pack See Rx Instructions .Route .COMPLEX 6 Days Qty: 21 0RF Rx Instructions: taper pack; Referrals Follow up/Referrals: Star Ernandez MD [Primary Care Provider] - See instructions Activity Restrictions/Add. Instructions Additional Instructions/Restrictions: Call your family doctor to establish care for this visit to the emergency department and schedule follow-up within 48 hours to ensure improvement. If you have any worsening of your condition or any other concerning signs or symptoms, return to the emergency department or your primary care doctor for further evaluation. Irbesartan once daily until following up with Dr. Akhtar for further management. Clinical Impressions Clinical Impression: Hypertension, Shortness of breath Print Language Print Language: Romanian Discharge ED Provider: Som Zavala General Adult HPI General Chief complaint: Arrhythmia/Palpitations Stated complaint: HBP 173/114,SOA Time Seen by Provider: 06/10/24 19:54 Mode of Arrival: Ambulatory Source of Information: Patient Limitations: No Limitations Description of Symptoms (Recalled from ER Triage Doc. by RN): pt states he has had elevated BP over the last wk. pt does not have a hx of HTN. pt states he is also feeling SOA and having heart palpitations. pt denies chest pain. no daily meds/medical hx. History of Present Illness HPI narrative: Please note that above description of symptoms, in this electronic medical record under categorization of recalled from ER triage doctor by RN are reflective of an initial nursing assessment, however, is not reflective of my full history and physical exam that was personally taken and clarified. Consequentially, this preceding description of symptoms, which may include the patient's categorized chief complaint in the EMR, do not reflect my personal clinical impression, and the ultimate description of history of present illness and patient stated complaints should be deferred to this section of the note. Unless stated otherwise or congruent with this section of the note, additional signs, symptoms, or incongruence should be interpreted as inaccurate with my clinical impression. Related Data Previous Rx's ?Medication ?Instructions ?Recorded etodolac 200 mg capsule 200 mg PO Q8H PRN pain #20 caps 01/15/24 methocarbamol 500 mg tablet 500 mg PO TID PRN muscle spasm #12 01/15/24 tabs methylprednisolone 4 mg tablets in See Rx Instructions .Route 01/15/24 a dose pack (Medrol (Julio Cesar)) .COMPLEX 6 days #21 tabs irbesartan 150 mg tablet 150 mg PO DAILY #30 tabs 06/10/24 Allergies Allergy/AdvReac Type Severity Reaction Status Date / Time No Known Allergies Allergy Verified 06/10/24 20:15 [facility] Disclaimer: The information contained in this section may have been updated after the patient was seen, as this information can be updated by other users. Social History (Updated 09/09/22 @ 17:40 by Janet Wilkins APRN) Smoking Status: Never smoker second hand exposure: No alcohol intake: never substance use type: denies use current occupational status: employed Travel in the last 8 weeks: None Have you lived/traveled outside US in past 30 days?: No Contact w/someone who lives/traveled outside US past 30 days?: No Exposure to someone with infectious disease in past 14 days?: No Do you have a fever (greater than 100.4 F or 38 C)?: No Have you tested positive for COVID-19: No Exposed to someone with COVID-19 in past 14 days?: No Do you have a sore throat?: No Do you have a cough?: No Do you have any weakness?: No Do you have any diarrhea?: No Are you experiencing any unusual bleeding?: No Do you have any muscle aches/pain?: No Do you have any abdominal pain?: No Are you experiencing loss of taste or smell?: No Other Medical History Have you received the Flu Vaccine for this season: No Have you received the Pneumonia Vaccine: No ROS Obtained: Yes All systems reviewed & no additional complaints except as documented Physical Exam General General appearance: alert Head Head exam: atraumatic and normocephalic Eye Eye exam: Present normal appearance, PERRL and EOMI Neck Neck exam: Present normal inspection, full ROM and trachea midline Respiratory Respiratory exam: Absent respiratory distress, wheezes, stridor, accessory muscle use or prolonged expiratory phase Cardiovascular Cardiovascular exam: Present other (Pulses equal symmetric in upper and lower extremities) Abdominal Exam Abdominal exam: Present soft; Absent distention, tenderness or pulsatile mass Extremities Exam Extremities exam: Absent edema Neurological Exam Neurological exam: Present alert, oriented X3 and CN II-XII intact; Absent motor sensory deficit Skin Skin exam: Present warm and dry; Absent diaphoresis or erythema Medical Decision Making Medical Records Medical records reviewed: Yes I reviewed the patient's medical records. Screening: Per USPSTF and CDC recommendations, given the prevalence of disease in our region, it is our hospital?s policy to screen for HIV and viral Hepatitis for all patients aged 18 and over and those with ongoing risk factors. Pradip Inquiry Pt receiving controlled substance: No Pradip was queried for this patient: No Vital Signs: 06/10/24 20:11 Temperature 97.7 F Temperature Source Oral Pulse Rate [Left] 104 H Respiratory Rate 21 Blood Pressure [Right Arm] 165/110 H Blood Pressure Mean [Right Arm] 128 Blood Pressure Source [Right Arm] Automatic Cuff Blood Pressure Position [Right Arm] Sitting 02 Sat by Pulse Oximetry 100 Oxygen Delivery Method Room Air Lab Data Lab Results 06/10/24 20:15: WBC 8.6, RBC 5.34, Hgb 15.4, Hct 44.7, MCV 83.7, MCH 28.8, MCHC 34.5, RDW 12.5, Plt Count 226, MPV 9.6, Neut % (Auto) 54.3, Lymph % (Auto) 35.1, [place] % (Auto) 7.7, Eos % (Auto) 2.4, Baso % (Auto) 0.3, Neut # (Auto) 4.7, Lymph # (Auto) 3.0, [place] # (Auto) 0.7, Eos # (Auto) 0.2, Baso # (Auto) 0.0, Sodium 140, Potassium 3.9, Chloride 101, Carbon Dioxide 29, Anion Gap 13.9, BUN 11, Creatinine 0.90, Estimated Creat Clear 123, Estimated GFR 101, Est GFR ( Amer) 122, Glucose 106 H, Calcium 9.8, Total Bilirubin 0.7, AST 62 H, ALT 111 H, Alkaline Phosphatase 45, Troponin I < 0.01, NT-Pro-B Natriuret Pep < 20.0, Total Protein 8.1, Albumin 5.0, Globulin 3.1, Albumin/Globulin Ratio 1.6, Triglycerides 421 H, Cholesterol 237 H, HDL Cholesterol 32 L, Cholesterol/HDL Ratio 7.4 H 06/10/24 20:15 06/10/24 20:15 Orders (Tests/Meds): ED MEDICATIONS Discontinued Medications Generic Name Dose Route Start Last Admin Trade Name Jovanni PRN Reason Stop Dose Admin Irbesartan 150 mg 06/10/24 20:22 Irbesartan 150mg Tab PO 06/10/24 20:23 ONCE ONE ORDERS Category Date Time Status CXR --portable [XR chest portable] Stat Exams 06/10/24 20:22 Taken CBC w/Auto Diff [Complete Blood Count Auto Diff] Stat Lab 06/10/24 20:15 Completed CMP [Comprehensive Metabolic Panel] Stat Lab 06/10/24 20:15 Completed HIV Combo Stat Lab 06/10/24 20:15 Received Hemoglobin A1C Stat Lab 06/10/24 20:15 Received Hep C Ab with Reflex to RNA Stat Lab 06/10/24 20:15 Received Lipid Panel Stat Lab 06/10/24 20:15 Results NT Pro Brain Natriuretic Pep. Stat Lab 06/10/24 20:15 Completed Trop I [Troponin I] Stat Lab 06/10/24 20:15 Completed Troponin I Q3H Lab 06/10/24 23:30 Ordered Troponin I Q3H Lab 06/11/24 02:30 Ordered Medical Decision Narrative: 28-year-old male with history of obesity and hypertension who is medically noncompliant presenting with hypertension and shortness of breath. Patient states that he has been feeling like him going to , with exertion throughout the day today, 06/10. States that he was supposed be on high blood pressure medication in the past, but has not been taking it and does not follow-up. States that he gets chest pressure, shortness of breath, but no overt chest pain. No neurologic deficits. Largely asymptomatic at rest. History was obtained via conversation with patient. On arrival, patient hemodynamically stable, alert, oriented x4, appropriate, GCS 15, moving all extremities spontaneously, pupils equal and reactive to light. Full physical exam performed and significant for obese male no acute distress. Hypertensive and nontachycardic on my exam. Lungs are clear, cardiac exam normal with no murmurs gallops or rubs. No lower extremity edema. Grossly neurologically intact and ambulatory. Differential includes lifestyle induced, renal hypertension, primary versus secondary hypertension, metabolic abnormality, endocrinologic abnormality, less likely be ACS, [place], pneumothorax, pneumonia, PE. Patient placed on continuous cardiac monitoring and continuous pulse ox with initial blood pressure 165/110, heart rate 104, saturation 100% on room air. Independent interpretation of EKG shows sinus tach 102 bpm with T wave inversions in V2 and V3 with no reciprocal change. Leftward leaning axis. NV 155, QRS 94, QTc 396. Patient was given 150 mg oral irbesartan for symptomatic management and correction of underlying abnormalities. Workup independently interpreted and significant for nonactionable hematologic labs. On independent interpretation of imaging, no acute cardiopulmonary airspace disease on chest x-ray. See radiology read for full review of final results. Heart score 1 for risk factors. Because patient at baseline without signs or symptoms of clinical decompensation, deemed appropriate for discharge. Results were relayed to patient who voiced understanding and were agreeable to outpatient management and follow up. I discussed my clinical impression with patient and answered all questions. At this time, the evidence for any other entities in the differential is insufficient to warrant any further testing or ED observation. This was explained as well. Advisory was given that persistent or worsening symptoms require further evaluation. I confirmed the understanding of this discussion. [employer]atch [employer]er disclaimer Much of this encounter note is an electronic workers compensation analyst spoken language to printed text. Electronic workers compensation analyst of the spoken language may permit errors. Although I have reviewed the note, some errors may still exist. Critical Care Critical Care Time Critical Care Time: No
[2024-06-10 20:28] LABS: Basophils % 0.3 % (0.1-2.0); Eosinophils # 0.2 K/mm3 (0.0-0.4); Eosinophils % 2.4 % (0.1-12.0); Hematocrit 44.7 % (42.0-52.0); Hemoglobin 15.4 g/dL (14.1-18.0); Lymphocytes % 35.1 % (10-50); Mean Corpuscular HGB Conc 34.5 g/dL (31.8-35.4); Mean Corpuscular Hemoglobin 28.8 pg (27.0-31.2); Mean Corpuscular Volume 83.7 fl (80-94); Mean Platelet Volume 9.6 fl (7.4-10.4); Monocytes # 0.7 K/mm3 (0.1-1.0); Monocytes % 7.7 % (1.7-9.3); Neutrophils # 4.7 K/mm3 (1.8-7.8); Neutrophils % 54.3 % (37.0-80.0); Platelet Count 226 K/mm3 (142-424); Red Blood Count 5.34 M/mm3 (4.60-6.20); Red Cell Distribution Width 12.5 % (11.5-17.5); White Blood Count 8.6 K/mm3 (4.8-10.8)
[2024-06-10 20:30] VITALS: BP 148/95; PULSE 87; RESP 27; O2SAT 96
[2024-06-10 20:33] LABS: Chloride 101 mmol/L (98-107); Potassium 3.9 mmoL/L (3.5-5.1); Sodium 140 mmol/L (136-145)
[2024-06-10 20:35] LABS: Blood Urea Nitrogen 11 mg/dl (9-20); Creatinine Clearance Estimated 123 mL/min (50-200); Estimated Glomerular Filt Rate 101 ml/min (>60); GFR (African American) 122 ML/MIN (>60)
[2024-06-10 20:36] LABS: Alanine Aminotransferase 111 U/L (12-78); Albumin/Globulin Ratio 1.6 (1.1-1.8); Alkaline Phosphatase 45 U/L (38-126); Anion Gap 13.9 mEq/L (5-15); Aspartate Amino Transferase 62 U/L (17-59); Bilirubin,Total 0.7 mg/dl (0.2-1.3); Calcium 9.8 mg/dl (8.4-10.2); Carbon Dioxide 29 mmol/L (22.0-30.0); Globulin 3.1 g/dL (1.3-3.2); Glucose 106 mg/dl (74-100); Total Protein,Serum 8.1 g/dl (6.3-8.2)
[2024-06-10 20:45] LABS: NT Pro Brain Natriuretic Pep. < 20.0 pg/mL (0-125)
[2024-06-10 20:48] LABS: Chol/HDL Ratio 7.4 (1-3.5); Cholesterol 237 mg/dl (140-200); HDL Cholesterol 32 mg/dl (40-60)
[2024-06-10 20:49] LABS: Triglycerides 421 mg/dl (30-150); Troponin I < 0.01 ng/ml (0.00-0.034)
[2024-06-10] MEDS: IRBESARTAN 150MG TAB 150 MG PO (20:53)
[2024-06-10 20:55] VITALS: BP 148/95; PULSE 95; RESP 20; TEMP 37.1; O2SAT 97
[2024-06-10 20:59] LABS: Direct LDL Cholesterol 144.56 mg/dL (100-129)
[2024-06-10 21:08] LABS: Hemoglobin A1C 5.4 % (4.0-6.0)
[2024-06-10 21:31] LABS: HIV Combo NEGATIVE (Negative)
[2024-06-12 05:10] LABS: HCV Ab Non Reactive (Non Reactive)
== END 2024-06-10 20:58 | disposition home or self-care (01) ==
PROVIDERS: Emergency Provider Emergency Medicine; PCP Internal Medicine Adolescent Medicine
DX: R06.02 Shortness of breath (principal); I10 Essential (primary) hypertension; R00.2 Palpitations
CPT/HCPCS: 71045; 80053; 80061; 83036; 83880; 84484; 85025; 86803; 87389; 93005; 99284

== ENCOUNTER 2024-09-09 09:11 | Emergency (ER) | payer BC, SELFPAY ==
[2024-09-09 09:31] VITALS: BP 141/96; PULSE 84; RESP 19; TEMP 36.9; O2SAT 98; BMI 41.3
[2024-09-09 09:43] LABS: Microscopic, Urine URINE MICROSCOPIC (MICROSCOPIC)
[2024-09-09 09:52] LABS: Appearance,Urine CLEAR (Clear); Bilirubin,Urine Negative (Negative); Blood, Urine Negative (Negative); Color,Urine YELLOW (Yellow); Glucose,Urine (UA) Negative (Negative); Ketones,Urine Negative (Negative); Leukocyte Esterase,Urine Negative (Negative); Nitrate,Urine Negative (Negative); Protein,Urine Negative (Negative); Specific Gravity, Urine 1.025 (1.005-1.030); Urobilinogen,Urine 0.2 EU/dl (0.2)
[2024-09-09 10:07] LABS: Squamous Epithelial Cell,Urine Occasional #/hpf (0-5); WBC,Urine Occasional #/hpf (0-3)
[2024-09-09 10:30] VITALS: BP 128/91; PULSE 83; O2SAT 96
[2024-09-09] MEDS: ONDANSETRON 4MG ODT 8 MG SL (10:34)
[2024-09-09] MEDS: ACETAMINOPHEN 500MG TAB 1000 MG PO (10:34)
[2024-09-09] MEDS: FAMOTIDINE 20MG TABLET 40 MG PO (10:34)
[2024-09-09 10:51] VITALS: BP 128/91; PULSE 85; RESP 18; TEMP 36.9; O2SAT 95
--- NOTE | 2024-09-09 13:19 | HMH.EDGENADL ---
Discharge Plan Disposition Patient Disposition: Home, Self-Care Condition: Good Prescriptions Prescriptions: New ondansetron 4 mg tablet,disintegrating 4 mg PO Q8H PRN (Reason: nausea and vomiting) 4 Days Qty: 12 0RF famotidine [Pepcid] 20 mg tablet 20 mg PO DAILY Qty: 20 0RF No Action etodolac 200 mg capsule 200 mg PO Q8H PRN (Reason: pain) Qty: 20 0RF methocarbamol 500 mg tablet 500 mg PO TID PRN (Reason: muscle spasm) Qty: 12 0RF methylprednisolone [Medrol (Julio Cesar)] 4 mg tablets,dose pack See Rx Instructions .Route .COMPLEX 6 Days Qty: 21 0RF Rx Instructions: taper pack; irbesartan 150 mg tablet 150 mg PO DAILY Qty: 30 2RF Referrals Follow up/Referrals: Star Ernandez MD [Primary Care Provider] - See instructions Activity Restrictions/Add. Instructions Additional Instructions/Restrictions: You were evaluated in the emergency department today. At this time, we feel you likely have infectious gastroenteritis. Please scrap picker your prescriptions at the pharmacy and take them as prescribed. Take Tylenol and ibuprofen every 4-6 hours as needed for pain/fever. Orally hydrate is much as possible. Eat a bland diet until your symptoms have resolved. Follow-up closely with your primary care provider. Return to the emergency department for new or worsening symptoms. Clinical Impressions Clinical Impression: Gastroenteritis Stand Alone Forms Stand Alone Forms: Work/School Release Instructions Patient Instructions: DI for Viral Gastroenteritis -- Adult, DI for Diarrhea and Traveler's Diarrhea -- Adult, DI for Acute Abdominal Pain, DI for Nausea -- Adult Print Language Print Language: Fijian Discharge ED Provider: Faith Venegas General Adult HPI General Chief complaint: Abdominal Pain Stated complaint: Abd. Pain, Vomitting, Diarr. Time Seen by Provider: 09/09/24 10:06 Mode of Arrival: Ambulatory Source of Information: Patient Description of Symptoms (Recalled from ER Triage Doc. by RN): pt presents to ED with c/o abdominal pain, nausea, vomitting. pt reports that his family come down with a virus. pt reports he began to have symptoms last night. abdominal cramping and nausea, vomitting. History of Present Illness HPI narrative: This patient is a 28-year-old male who denies significant past medical history presenting to the emergency department for evaluation of concern for nausea, vomiting, epigastric abdominal pain, and diarrhea. He notes that his whole family has a stomach virus. He started feeling bad last night. Pain is described as cramping. No other concerns or complaints. He is requesting medications and to go home and go to sleep. Related Data Previous Rx's ?Medication ?Instructions ?Recorded etodolac 200 mg capsule 200 mg PO Q8H PRN pain #20 caps 01/15/24 methocarbamol 500 mg tablet 500 mg PO TID PRN muscle spasm #12 01/15/24 tabs methylprednisolone 4 mg tablets in See Rx Instructions .Route 01/15/24 a dose pack (Medrol (Julio Cesar)) .COMPLEX 6 days #21 tabs irbesartan 150 mg tablet 150 mg PO DAILY #30 tabs 06/10/24 famotidine 20 mg tablet (Pepcid) 20 mg PO DAILY #20 tabs 09/09/24 ondansetron 4 mg disintegrating 4 mg PO Q8H PRN nausea and 09/09/24 tablet vomiting 4 days #12 tabs Allergies Allergy/AdvReac Type Severity Reaction Status Date / Time No Known Allergies Allergy Verified 06/10/24 20:15 [facility] Disclaimer: The information contained in this section may have been updated after the patient was seen, as this information can be updated by other users. Social History Smoking Status: Never smoker second hand exposure: No alcohol intake: never substance use type: denies use current occupational status: employed Travel in the last 8 weeks: None Have you lived/traveled outside US in past 30 days?: No Contact w/someone who lives/traveled outside US past 30 days?: No Exposure to someone with infectious disease in past 14 days?: No Do you have a fever (greater than 100.4 F or 38 C)?: No Have you tested positive for COVID-19: No Exposed to someone with COVID-19 in past 14 days?: No Do you have a sore throat?: No Do you have a cough?: No Do you have any weakness?: No Do you have any diarrhea?: Yes Are you experiencing any unusual bleeding?: No Do you have any muscle aches/pain?: No Do you have any abdominal pain?: Yes Are you experiencing loss of taste or smell?: No Other Medical History Have you received the Flu Vaccine for this season: No Have you received the Pneumonia Vaccine: No ROS Obtained: Yes All systems reviewed & no additional complaints except as documented Physical Exam General General appearance: alert and in no apparent distress Head Head exam: atraumatic and normocephalic Eye Eye exam: Present normal appearance, PERRL and EOMI ENT ENT exam: Present normal exam, normal oropharynx, mucous membranes moist and normal external ear exam Neck Neck exam: Present normal inspection, full ROM and trachea midline; Absent tenderness Chest Chest inspection: Present normal inspection and symmetric chest wall rise; Absent tenderness Respiratory Respiratory exam: Present normal lung sounds bilaterally; Absent respiratory distress, wheezes, stridor or accessory muscle use Cardiovascular Cardiovascular exam: Present regular rate and normal rhythm Abdominal Exam Abdominal exam: Present soft; Absent distention, tenderness, guarding, rebound or rigidity Extremities Exam Extremities exam: Present normal inspection, full ROM and normal capillary refill; Absent tenderness or edema Back Exam Back exam: Present normal inspection and full ROM; Absent tenderness Neurological Exam Neurological exam: Present alert, oriented X3, CN II-XII intact and normal gait; Absent motor sensory deficit Psychiatric Psychiatric exam: Present normal affect and normal mood Skin Skin exam: Present warm and dry Medical Decision Making Medical Records Medical records reviewed: Yes I reviewed the patient's medical records. Screening: Per USPSTF and CDC recommendations, given the prevalence of disease in our region, it is our hospital?s policy to screen for HIV and viral Hepatitis for all patients aged 18 and over and those with ongoing risk factors. Pradip Inquiry Pt receiving controlled substance: No Vital Signs: 09/09/24 09:31 09/09/24 10:30 09/09/24 10:51 Temperature 98.4 F 98.4 F Temperature Source Oral Oral Pulse Rate 83 85 Pulse Rate [Left Radial] 84 Respiratory Rate 19 18 Blood Pressure 128/91 H 128/91 H Blood Pressure [Right Arm] 141/96 H Blood Pressure Mean [Right Arm] 111 Blood Pressure Source Automatic Cuff Blood Pressure Position Supine 02 Sat by Pulse Oximetry 98 96 Oxygen Delivery Method Room Air Room Air Lab Data Lab results reviewed: Yes I reviewed the patient's lab results. Lab Results 09/09/24 09:23: Urine Color Yellow, Urine Appearance Clear, Urine pH 6.0, Ur Specific [place] 1.025, Urine Protein Negative, Urine Glucose (UA) Negative, Urine Ketones Negative, Urine Blood Negative, Urine Nitrate Negative, Urine Bilirubin Negative, Urine Urobilinogen 0.2, Ur Leukocyte Esterase Negative, Urine RBC None, Urine WBC Occasional, Ur Squamous Epith Cells Occasional, Urine Bacteria None Orders (Tests/Meds): ED MEDICATIONS Discontinued Medications Generic Name Dose Route Start Last Admin Trade Name Jovanni PRN Reason Stop Dose Admin Acetaminophen 1,000 mg 09/09/24 10:22 09/09/24 10:34 Acetaminophen 500mg Tab PO 09/09/24 10:23 1,000 mg ONCE ONE Administration Famotidine 40 mg 09/09/24 10:22 09/09/24 10:34 Famotidine 20mg Tablet PO 09/09/24 10:23 40 mg ONCE ONE Administration Ondansetron HCl 8 mg 09/09/24 10:22 09/09/24 10:34 Ondansetron 4mg Odt SL 09/09/24 10:23 8 mg ONCE ONE Administration ORDERS Category Date Time Status UA [Urinalysis and Microscopic] Stat Lab 09/09/24 09:23 Completed Medical Decision Narrative: In summary, this patient is a 28-year-old male presenting to the Emergency Department for evaluation of nausea, vomiting, diarrhea in the setting of his family having a viral illness at home. Differential diagnoses considered include but are not limited to viral gastroenteritis, bacterial gastroenteritis, colitis, pancreatitis. Ruling out the most morbid conditions drove assessment. It should be noted patient's history includes obesity which is not at goal therapy. This complicates all aspects of care by increasing patient's risk for morbidity. On exam, the patient is very well-appearing with benign abdominal exam. Vitals are reassuring on cardiac telemetry. He has no localizable abdominal tenderness to suggest acute surgical intra-abdominal pathology, and his family also at his home has similar symptoms which suggests infectious etiology. Patient was given oral Pepcid, Zofran, and Tylenol for symptomatic improvement with good improvement. He is requesting to go home to rest at this time. Given this, will discharge home with prescription for Zofran and Pepcid as well as instructions for supportive management. Strict return precautions given as well as instructions for close outpatient follow-up. He was discharged after all questions were answered. Critical Care Critical Care Time Critical Care Time: No
== END 2024-09-09 10:53 | disposition home or self-care (01) ==
PROVIDERS: Emergency Provider Emergency Medicine; PCP Internal Medicine Adolescent Medicine
DX: K52.9 Noninfective gastroenteritis and colitis, unspecified (principal); R11.2 Nausea with vomiting, unspecified; R10.13 Epigastric pain; Z20.828 Contact with and (suspected) exposure to other viral communicable diseases
CPT/HCPCS: 81001; 99283; Q0162

== ENCOUNTER 2025-01-15 20:57 | Emergency (ER) | payer BC, SELFPAY ==
[2025-01-15 21:05] VITALS: BP 138/88; PULSE 73; RESP 16; TEMP 36.7; O2SAT 98; BMI 39.9
--- NOTE | 2025-01-15 21:10 | XR_ITS ---
PROCEDURE INFORMATION: Exam: XR Right Foot Exam date and time: 01/15/2025 9:15 PM Age: 29 years old Clinical indication: Pain; Foot; Right; Additional info: Pain in plantar surface of foot TECHNIQUE: Imaging protocol: Radiologic exam of the right foot. Views: 3 or more views. COMPARISON: No relevant prior studies available. FINDINGS: Bones/joints: No acute fracture or malalignment. Calcaneal enthesopathy. Soft tissues: Unremarkable. IMPRESSION: No acute osseous findings.
--- NOTE | 2025-01-15 21:11 | ED_ITS ---
<Statement entered by Randall Zuñiga MD - 01/16/25 03:13> I was consulted by the BRIAN, and we discussed the complexity of the problems being addressed. I approve the treatment and management plan for this patient's care in the emergency department, thus performing a substantive portion of the medical decision making. Randall Zuñiga MD Discharge Plan Disposition Patient Disposition: Home, Self-Care Prescriptions Prescriptions: No Action ondansetron 4 mg tablet,disintegrating 4 mg PO Q8H PRN (Reason: nausea and vomiting) 4 Days Qty: 12 0RF famotidine [Pepcid] 20 mg tablet 20 mg PO DAILY Qty: 20 0RF etodolac 200 mg capsule 200 mg PO Q8H PRN (Reason: pain) Qty: 20 0RF methocarbamol 500 mg tablet 500 mg PO TID PRN (Reason: muscle spasm) Qty: 12 0RF methylprednisolone [Medrol (Julio Cesar)] 4 mg tablets,dose pack See Rx Instructions .Route .COMPLEX 6 Days Qty: 21 0RF Rx Instructions: taper pack; irbesartan 150 mg tablet 150 mg PO DAILY Qty: 30 2RF Referrals Follow up/Referrals: Star Ernandez MD [Primary Care Provider, Internal Medicine] - See instructions Yolanda Lr DPM [Staff Physician, Podiatry] - See instructions Activity Restrictions/Add. Instructions Additional Instructions/Restrictions: Take Tylenol and ibuprofen for pain. Elevate foot. Please call Dr. Earl for follow-up care and possible more imaging. If any further problems or concerns please return to the ED. Clinical Impressions Clinical Impression: Overuse injury, Acute foot pain Instructions Patient Instructions: Sprain, DI for Foot Pain Print Language Print Language: Pashto Discharge ED Provider: Randall Zuñiga General Adult HPI General Chief complaint: Extremity Injury, Lower Stated complaint: right foot pain Time Seen by Provider: 01/15/25 21:05 Mode of Arrival: Ambulatory Source of Information: Patient Description of Symptoms (Recalled from ER Triage Doc. by RN): pt presents to the ED d/t bottom right foot pain. pt states foot is not tingling and feels the same temperature. History of Present Illness HPI narrative: 29-year-old male presents to the ED for right lateral foot pain that started when he woke up this afternoon. He works last night and he works at [employer]. He works on his feet and in steel toed boots. He says that it hurts to step down on his foot and lift up the foot. He says once his foot is down on the ground it is okay. He says it hurts to touch the lateral outside portion of his foot. Said it is very tender. He has had no injury that he is aware of. No trauma to the foot. Related Data Previous Rx's ?Medication ?Instructions ?Recorded etodolac 200 mg capsule 200 mg PO Q8H PRN pain #20 c aps 01/15/24 methocarbamol 500 mg tablet 500 mg PO TID PRN muscle s pasm #12 01/15/24 tabs methylprednisolone 4 mg tablets in See Rx Instructions .Route 01/15/24 a dose pack (Medrol (Julio Cesar)) .COMPLEX 6 days #21 tabs irbesartan 150 mg tablet 150 mg PO DAILY #30 tabs 11/27 famotidine 20 mg tablet (Pepcid) 20 mg PO DAILY #20 ta bs 09/09/24 ondansetron 4 mg disintegrating 4 mg PO Q8H PRN nausea and 09/09/24 tablet vomiting 4 days #12 tabs Allergies Allergy/AdvReac Type Severity Reaction Status Date / Time No Known Allergies Allergy Verified 06/10/24 20:15 [facility] Disclaimer: The information contained in this section may have been updated after the patient was seen, as this information can be updated by other users. Social History Smoking Status: Never smoker second hand exposure: No alcohol intake: never substance use type: denies use current occupational status: employed Travel in the last 8 weeks?: None Have you lived/traveled outside [place] in past 30 days?: No Contact w/someone who lives/traveled outside US past 30 days?: No Exposure to someone with infectious disease in past 14 days?: No Do you have a fever (greater than 100.4 F or 38 C)?: No Have you tested positive for COVID-19?: No Exposed to someone with COVID-19 in past 14 days?: No Do you have a sore throat?: No Do you have a cough?: No Do you have any weakness?: No Do you have any diarrhea?: No Are you experiencing any unusual bleeding?: No Do you have any muscle aches/pain?: No Do you have any abdominal pain?: No Are you experiencing loss of taste or smell?: No Other Medical History Have you received the Flu Vaccine for this season: No Have you received the Pneumonia Vaccine: No ROS Obtained: Yes Systems reviewed as appropriate & no additional complaints except as documented Constitutional Constitutional: Reports as per HPI Physical Exam General General appearance: alert Head Head exam: normocephalic Eye Eye exam: Present PERRL and EOMI ENT ENT exam: Present normal oropharynx and mucous membranes moist Neck Neck exam: Present trachea midline Respiratory Respiratory exam: Present normal lung sounds bilaterally Cardiovascular Cardiovascular exam: Present regular rate, normal rhythm, normal heart sounds, +S1 and +S2 Extremities Exam Extremities exam: Present full ROM, tenderness (To lateral foot), normal capillary refill and edema Neurological Exam Neurological exam: Present alert and oriented X3 Skin Skin exam: Present warm, dry, intact and erythema (To lateral portion of foot) Medical Decision Making Medical Records Screening: Per USPSTF and CDC recommendations, given the prevalence of disease in our region, it is our hospital?s policy to screen for HIV and viral Hepatitis for all patients aged 18 and over and those with ongoing risk factors. Pradip Inquiry Pt receiving controlled substance: No Pradip was queried for this patient: No Vital Signs: 01/15/25 21:05 01/15/25 22:14 Temperature 98.1 F 98.1 F Temperature Source Oral Oral Pulse Rate 91 H Pulse Rate [Right Radial] 73 Respiratory Rate 16 20 Blood Pressure 137/87 Blood Pressure [Right Arm] 138/88 Blood Pressure Mean [Right Arm] 104 Blood Pressure Source Automatic Cuff Blood Pressure Position Sitting Blood Pressure Position [Right Arm] Supine 02 Sat by Pulse Oximetry 98 Oxygen Delivery Method Room Air Room Air Orders (Tests/Meds): ORDERS Category Date Time Status Foot XR right minimum 3 views [XR foot RT min 3V] Stat Exams 01/15/25 21:10 Completed Medical Decision Narrative: patient is a 29-year-old male presenting to the emergency department for evaluation of right foot pain. Patient is hemodynamically stable and nontoxic- appearing upon arrival, afebrile. Differential diagnosis includes plantar fasciitis, overuse injury, fracture, among others. Workup will be conducted with specific imaging. Initial inventions include analgesics. Discussed with patient his x-ray results which were negative. He does have pain in his right foot. We discussed seeing podiatry and using a walking boot to go home with with this and we will have him follow with Dr. Lr. Patient safe for discharge Critical Care Critical Care Time Critical Care Time: No
[2025-01-15 22:14] VITALS: BP 137/87; PULSE 91; RESP 20; TEMP 36.7; O2SAT 96
== END 2025-01-15 22:15 | disposition home or self-care (01) ==
PROVIDERS: Emergency Provider Student in an Organized Health Care Education/Training Program; PCP Internal Medicine Adolescent Medicine
DX: M79.671 Pain in right foot (principal); X50.3XXA Overexertion from repetitive movements, initial encounter
CPT/HCPCS: 73630; 99283

== ENCOUNTER 2025-01-17 12:16 | Outpatient (CLI) | payer BC, SELFPAY ==
[2025-01-17 12:31] LABS: Hematocrit 41.0 % (42.0-52.0); Hemoglobin 13.5 g/dL (14.1-18.0); Immature Granulocytes % 0.2 %; Mean Corpuscular HGB Conc 32.9 g/dL (31.8-35.4); Mean Corpuscular Hemoglobin 28.2 pg (27.0-31.2); Mean Corpuscular Volume 85.8 fl (80-94); Nucleated Red Blood Cells % 0 %; Platelet Count 227 K/mm3 (142-424); Red Blood Count 4.78 M/mm3 (4.60-6.20); Red Cell Distribution Width-SD 40.7 fL; White Blood Count 10.5 K/mm3 (4.8-10.8)
[2025-01-17 13:12] LABS: Alanine Aminotransferase 80 U/L (12-78); Albumin Level 4.6 g/dl (3.5-5.0); Albumin/Globulin Ratio 1.8 (1.1-1.8); Alkaline Phosphatase 53 U/L (38-126); Anion Gap 13.1 mEq/L (5-15); Aspartate Amino Transferase 34 U/L (17-59); Bilirubin,Total 0.4 mg/dl (0.2-1.3); Blood Urea Nitrogen 14 mg/dl (9-20); Calcium 9.2 mg/dl (8.4-10.2); Carbon Dioxide 26 mmol/L (22.0-30.0); Chloride 106 mmol/L (98-107); Creatinine,Serum 0.80 mg/dl (0.66-1.25); Estimated Glomerular Filt Rate 115 ml/min (>60); GFR (African American) 139 ML/MIN (>60); Globulin 2.6 g/dL (1.3-3.2); Glucose 90 mg/dl (74-100); Potassium 4.1 mmoL/L (3.5-5.1); Sodium 141 mmol/L (136-145); Total Protein,Serum 7.2 g/dl (6.3-8.2); Uric Acid 6.9 mg/dl (3.5-8.5)
[2025-01-17 13:18] LABS: C-Reactive Protein 11.7 mg/L (0-4)
== END 2025-01-17 23:59 | disposition home or self-care (01) ==
LOC: LAB 12:17
PROVIDERS: PCP Internal Medicine Adolescent Medicine; Visit Provider Nurse Practitioner Family
DX: M79.671 Pain in right foot (principal)
CPT/HCPCS: 36415; 80053; 84550; 85025; 85651; 86140

== ENCOUNTER 2025-03-28 15:15 | Emergency (ER) | payer BC, SELFPAY ==
[2025-03-28 15:16] VITALS: BP 153/95; PULSE 97; RESP 18; TEMP 36.8; O2SAT 98; BMI 39.9
--- NOTE | 2025-03-28 15:20 | ECG_ITS ---
APPROVED REPORT Exam: Resting ECG HR:100 bpm ECG Measurements Heart Rate 100 AXES AK 176 P 59 QRSd 99 QRS 26 QT 362 T 9 QTc 419 Conclusion Sinus tachycardia without acute ST or T wave changes concerning for ischemia Electronically signed by : Ade Davis, 03/29/2025 00:39:56
--- NOTE | 2025-03-28 15:22 | XR_ITS ---
PROCEDURE INFORMATION: Exam: XR Chest Exam date and time: 03/28/2025 3:42 PM Age: 29 years old Clinical indication: Cough and shortness of breath; Sternal or substernal pain; Additional info: Chest pain, shortness of breath TECHNIQUE: Imaging protocol: Radiologic exam of the chest. Views: 1 view. COMPARISON: CR XR CHEST PORTABLE 06/10/2024 8:25 PM FINDINGS: Lungs: Minimal crowding of bronchovascular structures due to low lung volumes. No definite consolidations. Pleural spaces: Unremarkable. No pleural effusion. No pneumothorax. Heart/Mediastinum: Unremarkable. No cardiomegaly. Bones/joints: Unremarkable. IMPRESSION: No acute findings.
[2025-03-28 15:37] LABS: Coronavirus 19, PCR Not Detected (NotDetected); Influenza A, PCR Not Detected (NotDetected); Influenza B, PCR Not Detected (NotDetected)
[2025-03-28 15:40] LABS: Hematocrit 42.4 % (42.0-52.0); Hemoglobin 14.6 g/dL (14.1-18.0); Immature Granulocytes % 0.4 %; Mean Corpuscular HGB Conc 34.4 g/dL (31.8-35.4); Mean Corpuscular Hemoglobin 29.0 pg (27.0-31.2); Mean Corpuscular Volume 84.1 fl (80-94); Nucleated Red Blood Cells % 0 %; Platelet Count 228 K/mm3 (142-424); Red Blood Count 5.04 M/mm3 (4.60-6.20); Red Cell Distribution Width-SD 37.9 fL; White Blood Count 11.0 K/mm3 (4.8-10.8)
[2025-03-28 16:01] LABS: Albumin Level 4.4 g/dl (3.5-5.0); Chloride 101 mmol/L (98-107); Potassium 3.5 mmoL/L (3.5-5.1); Sodium 133 mmol/L (136-145)
[2025-03-28 16:04] LABS: Alanine Aminotransferase 85 U/L (12-78); Albumin/Globulin Ratio 1.4 (1.1-1.8); Alkaline Phosphatase 62 U/L (38-126); Anion Gap 12.5 mEq/L (5-15); Aspartate Amino Transferase 45 U/L (17-59); Bilirubin,Total 0.6 mg/dl (0.2-1.3); Blood Urea Nitrogen 14 mg/dl (9-20); Calcium 8.4 mg/dl (8.4-10.2); Carbon Dioxide 23 mmol/L (22.0-30.0); Creatinine Clearance Estimated 238 mL/min (50-200); Creatinine,Serum 0.80 mg/dl (0.66-1.25); Estimated Glomerular Filt Rate 115 ml/min (>60); GFR (African American) 139 ML/MIN (>60); Globulin 3.1 g/dL (1.3-3.2); Glucose 103 mg/dl (74-100); Total Protein,Serum 7.5 g/dl (6.3-8.2)
[2025-03-28 16:17] LABS: Troponin I < 0.01 ng/ml (0.00-0.034)
--- NOTE | 2025-03-28 16:58 | ED_ITS ---
<Statement entered by Ade Davis DO - 03/29/25 00:32> I was consulted by the BRIAN, and we discussed the complexity of problems being addressed. I approve the treatment and management plan for this patient's care in the emergency department, thus performing a substantial portion of the medical decision making. Ade Davis DO Discharge Plan Disposition Patient Disposition: Home, Self-Care Prescriptions Prescriptions: No Action ondansetron 4 mg tablet,disintegrating 4 mg PO Q8H PRN (Reason: nausea and vomiting) 4 Days Qty: 12 0RF famotidine [Pepcid] 20 mg tablet 20 mg PO DAILY Qty: 20 0RF etodolac 200 mg capsule 200 mg PO Q8H PRN (Reason: pain) Qty: 20 0RF methocarbamol 500 mg tablet 500 mg PO TID PRN (Reason: muscle spasm) Qty: 12 0RF methylprednisolone [Medrol (Julio Cesar)] 4 mg tablets,dose pack See Rx Instructions .Route .COMPLEX 6 Days Qty: 21 0RF Rx Instructions: taper pack; irbesartan 150 mg tablet 150 mg PO DAILY Qty: 30 2RF Referrals Follow up/Referrals: Daniele Lantigua MD [Staff Physician, Cardiology] - See instructions Star Ernandez MD [Primary Care Provider, Internal Medicine] - See instructions Activity Restrictions/Add. Instructions Additional Instructions/Restrictions: Please call Dr. Lantigua's office for follow-up. Clinical Impressions Clinical Impression: Shortness of breath Instructions Patient Instructions: DI for Shortness of Breath Print Language Print Language: Luxembourgish Discharge ED Provider: Ade Davis [facility] General Chief Complaint: Chest Pain Stated Complaint: chest pain Time Seen by Provider: 03/28/25 16:49 Mode of Arrival: Ambulatory Source of Information: Patient Description of Symptoms (Recalled from ER Triage Doc. by RN): Pt presents for mid sternal chest pain that started 1 week ago. Pt states he has also been feeling more short of breath. History of Present Illness HPI narrative: 29-year-old male presents to the ED today for complaint of midsternal chest pain that started a week ago. He has been having some shortness of breath and cough. Patient states that it feels like burning and tightness when he takes of breath. He has nausea no vomiting or diarrhea. No fevers or chills. He has no asthma. Related Data Previous Rx's ?Medication ?Instructions ?Recorded etodolac 200 mg capsule 200 mg PO Q8H PRN pain #20 c aps 01/15/24 methocarbamol 500 mg tablet 500 mg PO TID PRN muscle s pasm #12 01/15/24 tabs methylprednisolone 4 mg tablets in See Rx Instructions .Route 01/15/24 a dose pack (Medrol (Julio Cesar)) .COMPLEX 6 days #21 tabs irbesartan 150 mg tablet 150 mg PO DAILY #30 tabs 11/27 famotidine 20 mg tablet (Pepcid) 20 mg PO DAILY #20 ta bs 09/09/24 ondansetron 4 mg disintegrating 4 mg PO Q8H PRN nausea and 09/09/24 tablet vomiting 4 days #12 tabs Allergies Allergy/AdvReac Type Severity Reaction Status Date / Time No Known Allergies Allergy Verified 06/10/24 20:15 [facility] Disclaimer: The information contained in this section may have been updated after the patient was seen, as this information can be updated by other users. Social History Smoking Status: Never smoker second hand exposure: No alcohol intake: never substance use type: denies use current occupational status: employed Travel in the last 8 weeks?: None Have you lived/traveled outside US in past 30 days?: No Contact w/someone who lives/traveled outside US past 30 days?: No Exposure to someone with infectious disease in past 14 days?: No Do you have a fever (greater than 100.4 F or 38 C)?: No Have you tested positive for COVID-19?: No Exposed to someone with COVID-19 in past 14 days?: No Do you have a sore throat?: No Do you have a cough?: No Do you have any weakness?: No Do you have any diarrhea?: No Are you experiencing any unusual bleeding?: No Do you have any muscle aches/pain?: No Do you have any abdominal pain?: No Are you experiencing loss of taste or smell?: No Other Medical History Have you received the Flu Vaccine for this season: No Have you received the Pneumonia Vaccine: No ROS Obtained: Yes Systems reviewed as appropriate & no additional complaints except as documented Constitutional Constitutional: Reports as per HPI Physical Exam General General appearance: alert and anxious Head Head exam: normocephalic Eye Eye exam: Present PERRL ENT ENT exam: Present mucous membranes moist Neck Neck exam: Present trachea midline Chest Chest inspection: Present symmetric chest wall rise Respiratory Respiratory exam: Present normal lung sounds bilaterally Cardiovascular Cardiovascular exam: Present regular rate, normal rhythm, normal heart sounds, +S1 and +S2 Abdominal Exam Abdominal exam: Present soft and normal bowel sounds Extremities Exam Extremities exam: Present normal inspection, full ROM and normal capillary refill Back Exam Back exam: Present normal inspection and full ROM Neurological Exam Neurological exam: Present alert, oriented X3 and normal gait Psychiatric Psychiatric exam: Present normal affect and normal mood Skin Skin exam: Present warm and dry HEART Score HEART Score HEART Score assessment performed?: Yes History (anamnesis): Slightly suspicious ECG: Normal Age: <45 years Risk factors: No known risk factors Troponin: </= normal limit HEART Score: 0 Critical Care Critical Care Time Critical Care Time: No Medical Decision Making Pradip Inquiry Pt receiving controlled substance: No Pradip was queried for this patient: No Vital Signs Vital Signs: 03/28/25 15:16 Temperature 98.3 F Temperature Source Temporal Artery Scan Pulse Rate [Right] 97 H Respiratory Rate 18 Blood Pressure [Right Arm] 153/95 H Blood Pressure Mean [Right Arm] 114 02 Sat by Pulse Oximetry 98 Lab Data Labs: Lab Results 03/28/25 15:23: SARS-CoV-2 (PCR) Not detected, Influenza A Untype (PCR) Not detected, Influenza Type B (PCR) Not detected 03/28/25 15:28: WBC 11.0 H, RBC 5.04, Hgb 14.6, Hct 42.4, MCV 84.1, MCH 29.0, MCHC 34.4, RDW 12.5, Plt Count 228, MPV 9.6, Neut % (Auto) 47.9, Lymph % (Auto) 40.7, Imperial % (Auto) 7.5, Eos % (Auto) 3.0, Baso % (Auto) 0.5, Neut # (Auto) 5.3, Lymph # (Auto) 4.5, Imperial # (Auto) 0.8, Eos # (Auto) 0.3, Baso # (Auto) 0.1, S odium 133 L, Potassium 3.5, Chloride 101, Carbon Dioxide 23, Anion Gap 12.5, BUN 14, Creatinine 0.80, Estimated Creat Clear 238, Estimated GFR 115, Est GFR ( Amer) 139, Glucose 103 H, Calcium 8.4, Total Bilirubin 0.6, AST 45, ALT 85 H, Alkaline Phosphatase 62, Troponin I < 0.01, Total Protein 7.5, Albumin 4.4, Globulin 3.1, Albumin/Globulin Ratio 1.4 03/28/25 15:28 03/28/25 15:28 Response Orders (Tests/Meds): ED MEDICATIONS Generic Name Dose Route Start Last Admin Trade Name Freq PRN Reason Stop Dose Admin Dexamethasone Sodium Phosphate 8 mg 03/28/25 17:00 03/28/25 17:04 Dexamethasone 4mg/Ml 5ml Mdv IM 04/27/25 16:59 8 mg Q6H AMEE Administration Sodium Chloride 10 ml 03/28/25 17:53 03/28/25 17:54 Sodium Chloride 0.9% 10ml Syr (Rad Only) IV 04/27/25 17:52 10 ml NEEDED PRN Administration Maintain IV Site Discontinued Medications Generic Name Dose Route Start Last Admin Trade Name Freq PRN Reason Stop Dose Admin Aspirin 325 mg 03/28/25 16:55 03/28/25 17:04 Aspirin 325mg Tablet PO 03/28/25 16:56 325 mg ONCE ONE Administration Iopamidol 80 ml 03/28/25 17:53 03/28/25 17:54 Iopamidol-370 (76%);100ml Bottle IV 03/28/25 17:54 80 ml ONCE ONE Administration Ketorolac Tromethamine 60 mg 03/28/25 16:55 03/28/25 17:05 Ketorolac 60mg/2ml Vial IM 03/28/25 16:56 60 mg ONCE ONE Administration Sodium Chloride 50 ml 03/28/25 17:53 03/28/25 17:54 0.9 % Sodium Chloride 50 Ml Vial IV 03/28/25 17:54 50 ml ONCE ONE Administration ORDERS Category Date Time Status CTA Chest [CT angio chest PE protocol] Stat Cat Scan 03/28/25 17:26 Completed XR chest portable Stat Exams 03/28/25 15:22 Completed Complete Blood Count Auto Diff Stat Lab 03/28/25 15:28 Completed Comprehensive Metabolic Panel Stat Lab 03/28/25 15:28 Completed D-Dimer Stat Lab 03/28/25 15:28 Received Rapid PCR Covid and Flu A/B Stat Lab 03/28/25 15:23 Completed Troponin I Stat Lab 03/28/25 15:28 Completed MDM Narrative Medical Decision Narrative: patient is a 29-year-old male presenting to the emergency department for evaluation of chest pain and shortness of breath for a week. Patient is hemodynamically stable and nontoxic-appearing upon arrival, afebrile. Differential diagnosis includes ACS, asthma, viral illness, PE. Workup will be conducted with hematologic labs, specific imaging, provocative tests. Initial inventions include analgesics. Initial workup reviewed by me hematologic labs are remarkable for normal troponin 0.01,. White count of 11, sodium 133, COVID and flu negative. Patient CTA is negative for PE chest x-ray was also negative. Patient is safe for discharge home. He and I discussed following up with cardiology.
[2025-03-28] MEDS: ASPIRIN 325MG TABLET 325 MG PO (17:04)
[2025-03-28] MEDS: DEXAMETHASONE 4MG/ML 5ML MDV 8 MG IM (17:04)
[2025-03-28] MEDS: KETOROLAC 60MG/2ML VIAL 60 MG IM (17:05)
--- NOTE | 2025-03-28 17:26 | CT_ITS ---
PROCEDURE INFORMATION: Exam: CTA Chest Without And With Contrast Exam date and time: 03/28/2025 5:54 PM Age: 29 years old Clinical indication: Shortness of breath; Additional info: Short of breath TECHNIQUE: Imaging protocol: Computed tomographic angiography of the chest without and with contrast. Exam focused on the arteries. 3D rendering (Not supervised by radiologist): MIP and/or 3D reconstructed images were created by the technologist. Radiation optimization: All CT scans at this facility use at least one of these dose optimization techniques: automated exposure control; mA and/or kV adjustment per patient size (includes targeted exams where dose is matched to clinical indication); or iterative reconstruction. Contrast material: ISOVUE; Contrast volume: 80 ml; Contrast route: INTRAVENOUS (IV); COMPARISON: CR XR CHEST PORTABLE 03/28/2025 3:42 PM FINDINGS: Pulmonary arteries: The pulmonary arteries are normal in course and caliber. No pulmonary emboli. Aorta: Aorta is normal in course and caliber. No acute pathology in the aorta. Thyroid: The thyroid gland is normal. Trachea: Airways are patent. Lungs: Lungs are clear. Pleural spaces: No pleural effusions or pneumothorax. Heart: No cardiomegaly. No pericardial thickening or effusion. Coronary arteries: There is no evidence of atherosclerotic coronary artery calcifications. Mediastinal space: The mediastinal contour is normal. Lymph nodes: No concerning adenopathy. Bones/joints: No acute skeletal abnormality or aggressive osseous lesion. Soft tissues: No acute soft tissue findings. Other findings: No acute findings in the included upper abdominal organs. IMPRESSION: 1. No pulmonary emboli. 2. No acute findings.
[2025-03-28] MEDS: IOPAMIDOL-370 (76%);100ML BOTTLE 80 ML IV (17:54)
[2025-03-28] MEDS: 0.9 % SODIUM CHLORIDE 50 ML VIAL IV (17:54)
[2025-03-28] MEDS: SODIUM CHLORIDE 0.9% 10ML SYR (RAD ONLY) 10 ML IV (17:54)
[2025-03-28 19:16] LABS: D-Dimer 0.63 ug/mL (0.0-0.5)
[2025-03-28 19:23] VITALS: BP 152/92; PULSE 76; RESP 18; TEMP 36.8; O2SAT 99
== END 2025-03-28 19:24 | disposition home or self-care (01) ==
PROVIDERS: Nurse Practitioner; Emergency Provider Student in an Organized Health Care Education/Training Program; PCP Internal Medicine Adolescent Medicine
DX: R07.1 Chest pain on breathing (principal); R06.02 Shortness of breath
CPT/HCPCS: 71045; 71275; 80053; 84484; 85025; 85378; 87636; 93005; 96372; 99285; J1100; J1885; Q9967